=== PATIENT | male | born 1995 | race Caucasian/White ===

== ENCOUNTER 2020-04-30 01:20 | Emergency (ER) | payer MEDICAID ==
[~2020-04-30] VITALS: Ht 180.3 cm; Wt 68.0 kg
[~2020-04-30 01:20] MED LIST: NO CURRENT MEDS
[2020-04-30 01:45] VITALS: BP 110/69
--- NOTE | 2020-04-30 01:54 | NUR ---
PT CAME TO THE ED C/O NAUSEA SINCE 10 PM. DENIES ANY VOMITING. PT AAOX4, VSS, RESPIRATIONS EVEN AND UNLABORED ON RA W/ NAD NOTED. PT CONNECTED TO THE MONITOR AND POX
[2020-04-30] MEDS ORDERED: ONDANSETRON 4 MG TAB.RAPDIS ONE (02:08)
[2020-04-30 02:13] LABS: APPEARANCE,URINE Clear (CLEAR); BILIRUBIN,URINE Negative (NEGATIVE); BLOOD, URINE Negative Ery/uL (NEGATIVE); COLOR,URINE Yellow (YELLOW); KETONES,URINE 40 (NEGATIVE); LEUKOCYTE ESTERASE ,URINE Negative (NEGATIVE); NITRITE, URINE Negative (NEGATIVE); PH,URINE 5.5 (5.0-8.0); PROTEIN,URINE Negative (NEGATIVE); UGLUCOSE Negative (NEGATIVE); UROBILINOGEN,URINE 0.2 EU/dL (0.2)
[2020-04-30] MEDS ORDERED: ONDANSETRON 4 MG TAB.RAPDIS SL ONE (02:30)
[2020-04-30 03:01] LABS: BACTERIA,URINE None seen /HPF (None Seen); RBC,URINE 0-2 /HPF (0-2); SQUAMOUS EPITHELIAL CELL,UR Few /HPF (None Seen); WBC,URINE 0-2 /HPF (0-3)
--- NOTE | 2020-04-30 03:01 | NUR ---
PT STATES HE FEELS BETTER
--- NOTE | 2020-04-30 03:23 | NUR ---
Patient discharged to home in stable condition. Written and verbal after care instructions given. Patient verbalizes understanding of instruction.
== END 2020-04-30 03:23 | disposition home or self-care (01) ==
LOC: ER 01:26
DX: R00.2 Palpitations (principal); G47.00 Insomnia, unspecified
CPT/HCPCS: 81001; 93005; 99284; Q0162; 81000-TC